=== PATIENT | female | born 1970 | race Caucasian/White ===

== ENCOUNTER 2016-12-13 21:57 | Inpatient (IN) | payer OTHER ==
[~2016-12-13] VITALS: Ht 160 cm; Wt 96.3 kg
[2016-12-13] MEDS ORDERED: SODIUM CHLOR 0.9% 1000 ML INJ 1,000 ML IV SCH (22:01)
[2016-12-13 22:04] VITALS: BP 189/84; PULSE 99; RESP 18; TEMP 98.4; O2SAT 98
[2016-12-13] MEDS ORDERED: IBUP800T23 PO (22:11)
[2016-12-13] MEDS ORDERED: LISI-515 PO (22:11)
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
[2016-12-13] MEDS ORDERED: ONDANSETRON HCL 4 MG/2 ML VIAL IVP ONE (22:15)
[2016-12-13] MEDS ORDERED: MORPHINE SULFATE 8 MG/ML INJ IV PUSH ONE (22:15)
[2016-12-13] MEDS ORDERED: MORPHINE SULFATE 4 MG/ML INJ IM ONE (22:30)
[2016-12-13] MEDS ORDERED: ONDANSETRON ODT 4 MG TAB PO ONE (22:30)
[2016-12-13 22:57] LABS: AUTOMATED NEUTROPHIL # 9.7 TH/MM3 (1.8-7.7); BASOPHIL # 0.1 TH/MM3 (0-0.2); BASOPHIL % 1.2 % (0.0-2.0); EOSINOPHIL # 0.1 TH/MM3 (0-0.4); EOSINOPHIL % 1.1 % (0.0-4.0); HEMATOCRIT 39.6 % (35.0-46.0); HEMO FLAGS DIFF FINAL; LYMPH % 12.7 % (9.0-44.0); LYMPHOCYTE # 1.6 TH/MM3 (1.0-4.8); MEAN CELL VOLUME 85.4 FL (80.0-100.0); MEAN CORPUSCULAR HGB CONC 33.9 % (32.0-36.0); MONO % 6.2 % (0.0-8.0); NEUT % 78.8 % (16.0-70.0); PLATELET COUNT 243 TH/MM3 (150-450); RED BLOOD COUNT 4.63 MIL/MM3 (4.00-5.30); RED CELL DISTRIBUTION WIDTH 13.5 % (11.6-17.2); WHITE BLOOD COUNT 12.2 TH/MM3 (4.0-11.0)
[2016-12-13 23:11] LABS: APTT (PATIENT) 22.9 SEC (24.3-30.1); INTERNATIONAL NORMALIZED RATIO 0.9 RATIO; PROTHROMBIN TIME - PATIENT 9.6 SEC (9.8-11.6)
[2016-12-13 23:23] LABS: ALKALINE PHOSPHATASE 69 U/L (45-117); TOTAL BILIRUBIN ADULT 0.2 MG/DL (0.2-1.0)
[2016-12-13 23:34] LABS: ALT (GPT) 83 U/L (10-53); ANION GAP 8 MEQ/L (5-15); AST (GOT) 78 U/L (15-37); BICARBONATE 27.7 MEQ/L (21.0-32.0); BLOOD UREA NITROGEN 15 MG/DL (7-18); CHLORIDE 104 MEQ/L (98-107); GLOMERULAR FILTRATION RATE 61 ML/MIN (>89); POTASSIUM 3.7 MEQ/L (3.5-5.1); SODIUM (NA) 140 MEQ/L (136-145)
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
[2016-12-13] MEDS ORDERED: MORPHINE SULFATE 8 MG/ML INJ ONE (23:50)
[2016-12-13 23:56] VITALS: RESP 18; O2SAT 97
[2016-12-14] VITALS: BP 167/77; PULSE 102; RESP 18; O2SAT 96
[2016-12-14] MEDS ORDERED: MORPHINE SULFATE 4 MG/ML INJ IV PUSH ONE
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
[2016-12-14] MEDS ORDERED: SODIUM CHLORIDE 0.9% FLUSH 5 ML FLUSH IVF PRN (00:45)
[2016-12-14] MEDS ORDERED: CHLORHEXIDINE GLUCONATE 2 % 1 PACK (2 CLOTHS) TOP PRN (00:45)
[2016-12-14] MEDS ORDERED: MISCELLANEOUS NURSING INFORMATION XX SCH (00:45)
[2016-12-14] MEDS ORDERED: ACETAMINOPHEN/HYDROcodone 325 MG/5 MG TAB PO PRN (00:45)
[2016-12-14] MEDS: ACETAMINOPHEN/HYDROcodone 325 MG/5 MG TAB PO PRN ×5 (01:05→21:55)
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
[2016-12-14 01:28] LABS: BACTERIA, URINE RARE /hpf; BLOOD, URINE SMALL (NEG); COMMENT (UR) CULT NOT INDICATED; CULTURE IF INDICATED CULT NOT INDICATED; GLUCOSE,URINE NEG (NEG); KETONE, URINE NEG (NEG); MUCUS URINE FEW /lpf (OCC); NITRITE,URINE NEG (NEG); URINE COLOR YELLOW (YELLW/STRAW)
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
[2016-12-14 02:50] VITALS: BP 136/78; PULSE 118; RESP 20; TEMP 98.2; O2SAT 95
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
[2016-12-14] MEDS: CHLORHEXIDINE GLUCONATE 2 % 1 PACK (2 CLOTHS) TOP SCH (04:00)
[2016-12-14] MEDS: HYDROmorphone HCL PF 2 MG/ML VIAL IVP PRN ×4 (06:10→19:54)
[2016-12-14] MEDS ORDERED: SODIUM CHLOR 0.9% 1000 ML INJ 1,000 ML IV SCH (07:06)
[2016-12-14] MEDS ORDERED: SODIUM CHLORIDE 0.9% FLUSH 5 ML FLUSH IV FLUSH PRN (07:15)
[2016-12-14] MEDS ORDERED: RESP: ALBUTEROL 2.5 MG/IPRATROPIUM 0.5 MG NEB (PRN) INH (07:15)
[2016-12-14 08:05] VITALS: BP 134/74; PULSE 105; RESP 16; TEMP 98.2; O2SAT 97
[2016-12-14] MEDS ORDERED: SODIUM CHLORIDE 0.9% FLUSH 5 ML FLUSH IV FLUSH SCH (09:00)
[2016-12-14] MEDS: DOCUSATE SODIUM 100 MG CAP PO SCH ×2 (09:12→21:54)
[2016-12-14] MEDS: FAMOTIDINE 20 MG TAB PO SCH ×2 (09:12→21:55)
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
[2016-12-14] MEDS: RESP: ALBUTEROL 2.5 MG/IPRATROPIUM 0.5 MG NEB (SCH) INH ×3 (11:29→21:10)
[2016-12-14] MEDS: ENOXAPARIN SODIUM 30 MG/0.3 ML SYRINGE SQ SCH ×2 (12:01→21:55)
[2016-12-14 12:16] VITALS: BP 145/79; PULSE 106; RESP 16; TEMP 97.6; O2SAT 100
--- NOTE | 2016-12-14 13:32 | HHI.PR ---
Objective Vitals/I&O Vital Signs Date Time Temp Pulse Resp B/P Pulse Ox O2 Delivery O2 Flow Rate FiO2 12/14/16 08:05 98.2 105 16 134/74 97 12/14/16 00:00 Room Air Labs Laboratory Tests Test 12/13/16 12/14/16 22:40 00:55 White Blood Count 12.2 Red Blood Count 4.63 Hemoglobin 13.4 Hematocrit 39.6 Mean Corpuscular Volume 85.4 Mean Corpuscular Hemoglobin 29.0 Mean Corpuscular Hemoglobin 33.9 Concent Red Cell Distribution Width 13.5 Platelet Count 243 Mean Platelet Volume 8.7 Neutrophils (%) (Auto) 78.8 Lymphocytes (%) (Auto) 12.7 Monocytes (%) (Auto) 6.2 Eosinophils (%) (Auto) 1.1 Basophils (%) (Auto) 1.2 Neutrophils # (Auto) 9.7 Lymphocytes # (Auto) 1.6 Monocytes # (Auto) 0.8 Eosinophils # (Auto) 0.1 Basophils # (Auto) 0.1 CBC Comment DIFF FINAL Differential Comment Prothrombin Time 9.6 Prothromb Time International 0.9 Ratio Activated Partial 22.9 Thromboplast Time Sodium Level 140 Potassium Level 3.7 Chloride Level 104 Carbon Dioxide Level 27.7 Anion Gap 8 Blood Urea Nitrogen 15 Creatinine 0.98 Estimat Glomerular Filtration 61 Rate Random Glucose 102 Calcium Level 8.6 Total Bilirubin 0.2 Aspartate Amino Transf 78 (AST/SGOT) Alanine Aminotransferase 83 (ALT/SGPT) Alkaline Phosphatase 69 Total Protein 7.1 Albumin 3.8 Urine Color YELLOW Urine Turbidity CLEAR Urine pH 6.0 Urine Specific [place] 1.015 Urine Protein 100 Urine Glucose (UA) NEG Urine Ketones NEG Urine Occult Blood SMALL Urine Nitrite NEG Urine Bilirubin NEG Urine Urobilinogen LESS THAN 2.0 Urine Leukocyte Esterase NEG Urine RBC 6 Urine WBC 1 Urine Bacteria RARE Urine Mucus FEW Microscopic Urinalysis Comment CULT NOT INDICATED Rosa Collins Dec 14, 2016 1:32 pm
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
[2016-12-14 16:30] VITALS: BP 120/67; PULSE 103; RESP 17; TEMP 98.1; O2SAT 96
[2016-12-14] MEDS: SODIUM CHLORIDE 0.9% FLUSH 5 ML FLUSH IVF PRN (19:54)
[2016-12-14 20:00] VITALS: BP 138/77; PULSE 100; RESP 16; TEMP 99.1; O2SAT 100
[2016-12-14] MEDS: MAGNESIUM HYDROXIDE SUSP 30 ML CUP PO SCH (21:55)
[2016-12-15] VITALS: BP 133/77; PULSE 107; RESP 16; TEMP 98; O2SAT 95
[2016-12-15] MEDS: ACETAMINOPHEN/HYDROcodone 325 MG/5 MG TAB PO PRN ×5 (01:42→19:28)
[2016-12-15] MEDS: HYDROmorphone HCL PF 2 MG/ML VIAL IVP PRN ×2 (01:43→05:35)
[2016-12-15] MEDS: CHLORHEXIDINE GLUCONATE 2 % 1 PACK (2 CLOTHS) TOP SCH (04:00)
[2016-12-15 04:26] LABS: AUTOMATED NEUTROPHIL # 5.9 TH/MM3 (1.8-7.7); BASOPHIL % 0.4 % (0.0-2.0); EOSINOPHIL % 0.5 % (0.0-4.0); HEMATOCRIT 37.3 % (35.0-46.0); HEMO FLAGS DIFF FINAL; LYMPH % 16.8 % (9.0-44.0); LYMPHOCYTE # 1.4 TH/MM3 (1.0-4.8); MEAN CELL VOLUME 86.7 FL (80.0-100.0); MEAN CORPUSCULAR HEMOGLOBIN 29.1 PG (27.0-34.0); MEAN CORPUSCULAR HGB CONC 33.5 % (32.0-36.0); MONO % 9.9 % (0.0-8.0); NEUT % 72.4 % (16.0-70.0); PLATELET COUNT 200 TH/MM3 (150-450); RED CELL DISTRIBUTION WIDTH 13.4 % (11.6-17.2); WHITE BLOOD COUNT 8.2 TH/MM3 (4.0-11.0)
[2016-12-15 05:16] LABS: BICARBONATE 25.9 MEQ/L (21.0-32.0); MAGNESIUM 2.1 MG/DL (1.5-2.5); POTASSIUM 3.9 MEQ/L (3.5-5.1)
[2016-12-15 08:00] VITALS: BP 121/67; PULSE 97; RESP 18; TEMP 97.1; O2SAT 95
--- NOTE | 2016-12-15 08:43 | PD.ORT.PN ---
Subjective Subjective Remarks Patient is very uncomfortable. Lies in bed with both hips flexed and externally rotated. Mild discomfort in the region of the right elbow. An x-ray has been obtained. No new areas of pain. Complaints of moderate spasm Objective Vitals Vital Signs Date Time Temp Pulse Resp B/P Pulse Ox O2 Delivery O2 Flow Rate FiO2 12/15/16 00:00 98.0 107 16 133/77 95 12/14/16 20:00 99.1 100 16 138/77 100 12/14/16 16:30 98.1 103 17 120/67 96 12/14/16 12:16 97.6 106 16 145/79 100 I/O 12/14/16 12/14/16 12/14/16 12/15/16 12/15/16 12/15/16 07:00 15:00 23:00 07:00 15:00 23:00 Intake Total 240 ml 742 ml 360 ml 240 ml Output Total 600 ml 250 ml 600 ml 400 ml Balance -360 ml 492 ml -240 ml -160 ml Intake Oral 240 ml 360 ml 360 ml 240 ml IV Total 382 ml Output Urine Total 600 ml 250 ml 600 ml 400 ml Result Diagram: 12/15/162 12/15/16 0402 Objective Remarks X-ray right elbow is reviewed. No evidence of fracture. X-ray of the pelvis and CT reviewed, this shows evidence of bilateral acetabular fractures without displacement. There is evidence of an anterior and issue ramus fracture on the left with mild displacement.. Right elbow full range of motion. Mild ecchymosis. No instability. Mild pain. Radial pulse 2+. Sensation normal distally. New line significant pain with any range of motion of either hip. The patient no significant spasm with range of motion. Sensation both legs normal. No swelling of either knee or ankle or foot. Assessment & Plan Assessment and Plan Left acetabular fracture, nondisplaced. Right acetabular fracture, nondisplaced. Left anterior and ischial ramus fracture. Contusion right elbow. PLAN: 50% weightbearing right leg Nonweightbearing left leg Weightbearing as tolerated both arms Nonoperative treatment at this time Soma as needed for spasm Continued Day catheter. This patient's present orthopedic condition is such that the catheter should stay in, probably for the next several days Trapeze and frame for the bed. Zofran as needed for nausea. Orthopedically stable Harlan Callahan MD Dec 15, 2016 08:42
[2016-12-15] MEDS: FAMOTIDINE 20 MG TAB PO SCH ×2 (09:35→20:24)
[2016-12-15] MEDS: ONDANSETRON HCL 4 MG/2 ML VIAL IV PUSH PRN ×2 (09:35→16:46)
[2016-12-15] MEDS: DOCUSATE SODIUM 100 MG CAP PO SCH ×2 (09:35→20:24)
[2016-12-15] MEDS: CARISOPRODOL 350 MG TAB PO PRN ×2 (09:36→19:28)
[2016-12-15] MEDS: ENOXAPARIN SODIUM 30 MG/0.3 ML SYRINGE SQ SCH ×2 (09:36→20:24)
[2016-12-15] MEDS: LACTULOSE SYRUP 20 GM/30 ML CUP PO SCH (09:37)
[2016-12-15] MEDS: RESP: ALBUTEROL 2.5 MG/IPRATROPIUM 0.5 MG NEB (SCH) INH ×4 (09:37→21:21)
[2016-12-15 10:00] VITALS: O2SAT 98
[2016-12-15 12:00] VITALS: BP 140/75; PULSE 94; RESP 18; TEMP 97.4; O2SAT 96
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
[2016-12-15 16:00] VITALS: BP 142/80; PULSE 96; RESP 18; TEMP 96.4; O2SAT 96
[2016-12-15] MEDS: LISINOPRIL 20 MG TAB PO SCH (16:52)
[2016-12-15 20:00] VITALS: BP 160/82; PULSE 101; RESP 19; TEMP 98.6; O2SAT 97
[2016-12-15] MEDS: MAGNESIUM HYDROXIDE SUSP 30 ML CUP PO SCH (20:24)
[2016-12-16 00:30] VITALS: BP 133/75; PULSE 107; RESP 20; TEMP 97.5; O2SAT 96
[2016-12-16] MEDS: RESP: ALBUTEROL 2.5 MG/IPRATROPIUM 0.5 MG NEB (SCH) INH (03:17)
[2016-12-16] MEDS: ACETAMINOPHEN/HYDROcodone 325 MG/5 MG TAB PO PRN ×5 (04:32→23:09)
[2016-12-16 08:00] VITALS: BP 139/78; PULSE 103; RESP 19; TEMP 97.6; O2SAT 100
[2016-12-16] MEDS: ONDANSETRON HCL 4 MG/2 ML VIAL IV PUSH PRN (09:17)
[2016-12-16] MEDS: ENOXAPARIN SODIUM 30 MG/0.3 ML SYRINGE SQ SCH ×2 (09:17→20:22)
[2016-12-16] MEDS: DOCUSATE SODIUM 100 MG CAP PO SCH ×2 (09:17→20:22)
[2016-12-16] MEDS: LISINOPRIL 20 MG TAB PO SCH (09:17)
[2016-12-16] MEDS: FAMOTIDINE 20 MG TAB PO SCH ×2 (09:17→20:22)
[2016-12-16] MEDS: LACTULOSE SYRUP 20 GM/30 ML CUP PO SCH (09:18)
[2016-12-16] MEDS: SODIUM CHLORIDE 0.9% FLUSH 5 ML FLUSH IVF PRN (09:22)
[2016-12-16 12:00] VITALS: BP 147/73; PULSE 102; RESP 18; TEMP 97.6; O2SAT 99
--- NOTE | 2016-12-16 12:59 | HHI.PR ---
Objective Vitals/I&O Vital Signs Date Time Temp Pulse Resp B/P Pulse Ox O2 Delivery O2 Flow Rate FiO2 12/16/16 12:00 97.6 102 18 147/73 99 12/15/16 10:00 21 12/14/16 00:00 Room Air [place] Dec 16, 2016 12:59
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
[2016-12-16 16:00] VITALS: BP 142/74; PULSE 101; RESP 18; TEMP 96.3; O2SAT 99
[2016-12-16] MEDS: MAGNESIUM HYDROXIDE SUSP 30 ML CUP PO SCH (20:22)
[2016-12-16 20:50] VITALS: BP 150/74; PULSE 101; RESP 17; TEMP 97.6; O2SAT 98
[2016-12-17 00:40] VITALS: BP 123/58; PULSE 99; RESP 18; TEMP 97.4; O2SAT 93
[2016-12-17] MEDS: ACETAMINOPHEN/HYDROcodone 325 MG/5 MG TAB PO PRN ×5 (05:05→21:16)
[2016-12-17 08:00] VITALS: BP 113/69; PULSE 98; RESP 18; TEMP 97.5; O2SAT 98
[2016-12-17] MEDS: FAMOTIDINE 20 MG TAB PO SCH ×2 (08:45→20:44)
[2016-12-17] MEDS: LISINOPRIL 20 MG TAB PO SCH (08:45)
[2016-12-17] MEDS: CARISOPRODOL 350 MG TAB PO PRN ×2 (08:50→17:18)
[2016-12-17] MEDS: DOCUSATE SODIUM 100 MG CAP PO SCH ×2 (08:52→20:45)
[2016-12-17] MEDS: LACTULOSE SYRUP 20 GM/30 ML CUP PO SCH (08:52)
[2016-12-17] MEDS: ENOXAPARIN SODIUM 30 MG/0.3 ML SYRINGE SQ SCH ×2 (08:53→20:44)
[2016-12-17] MEDS: SODIUM CHLORIDE 0.9% FLUSH 5 ML FLUSH IVF PRN (08:56)
[2016-12-17 12:00] VITALS: BP 112/62; PULSE 100; RESP 18; TEMP 97.5; O2SAT 95
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
[2016-12-17 16:30] VITALS: BP 121/83; PULSE 101; RESP 18; TEMP 98.8; O2SAT 97
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
[2016-12-17 20:10] VITALS: BP 139/66; PULSE 102; RESP 18; TEMP 98.1; O2SAT 96
[2016-12-17] MEDS: MAGNESIUM HYDROXIDE SUSP 30 ML CUP PO SCH (20:44)
[2016-12-18 00:45] VITALS: BP 124/60; PULSE 98; RESP 16; TEMP 97.7; O2SAT 95
[2016-12-18] MEDS: ACETAMINOPHEN/HYDROcodone 325 MG/5 MG TAB PO PRN ×5 (03:34→20:23)
[2016-12-18] MEDS: CARISOPRODOL 350 MG TAB PO PRN ×3 (03:34→20:23)
[2016-12-18] MEDS: LISINOPRIL 20 MG TAB PO SCH (07:58)
[2016-12-18] MEDS: ENOXAPARIN SODIUM 30 MG/0.3 ML SYRINGE SQ SCH ×2 (07:58→20:24)
[2016-12-18 08:00] VITALS: BP 129/74; PULSE 94; RESP 18; TEMP 96.7; O2SAT 96
[2016-12-18] MEDS: FAMOTIDINE 20 MG TAB PO SCH ×2 (08:00→20:23)
[2016-12-18] MEDS: LACTULOSE SYRUP 20 GM/30 ML CUP PO SCH (08:01)
[2016-12-18] MEDS: DOCUSATE SODIUM 100 MG CAP PO SCH ×2 (08:02→20:25)
[2016-12-18 12:00] VITALS: BP 130/65; PULSE 100; RESP 18; TEMP 96.3; O2SAT 99
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
[2016-12-18 16:00] VITALS: BP 111/65; PULSE 100; RESP 18; TEMP 96.3; O2SAT 97
[2016-12-18] MEDS: MAGNESIUM HYDROXIDE SUSP 30 ML CUP PO SCH (20:25)
[2016-12-18 20:50] VITALS: BP 128/60; PULSE 110; RESP 17; TEMP 98.6; O2SAT 95
[2016-12-19 00:33] VITALS: BP 163/77; PULSE 96; RESP 18; TEMP 97.1; O2SAT 95
[2016-12-19] MEDS: ACETAMINOPHEN/HYDROcodone 325 MG/5 MG TAB PO PRN ×5 (02:44→22:06)
[2016-12-19] MEDS: CARISOPRODOL 350 MG TAB PO PRN ×3 (05:28→20:43)
[2016-12-19 08:00] VITALS: BP 131/67; PULSE 100; RESP 18; TEMP 97.9; O2SAT 97
[2016-12-19] MEDS: LISINOPRIL 20 MG TAB PO SCH (08:13)
[2016-12-19] MEDS: LACTULOSE SYRUP 20 GM/30 ML CUP PO SCH (08:13)
[2016-12-19] MEDS: SODIUM CHLORIDE 0.9% FLUSH 5 ML FLUSH IVF PRN (08:13)
[2016-12-19] MEDS: ENOXAPARIN SODIUM 30 MG/0.3 ML SYRINGE SQ SCH ×2 (08:13→20:13)
[2016-12-19] MEDS: DOCUSATE SODIUM 100 MG CAP PO SCH ×2 (08:13→20:12)
[2016-12-19] MEDS: FAMOTIDINE 20 MG TAB PO SCH ×2 (08:13→20:12)
[2016-12-19 12:00] VITALS: BP 135/70; PULSE 100; RESP 18; TEMP 98.5; O2SAT 95
[2016-12-19 15:55] VITALS: BP 142/80; PULSE 100; RESP 18; TEMP 98.6; O2SAT 96
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
[2016-12-19 19:45] VITALS: BP 129/64; PULSE 104; RESP 20; TEMP 97.7; O2SAT 96
[2016-12-19] MEDS: MAGNESIUM HYDROXIDE SUSP 30 ML CUP PO SCH (20:12)
[2016-12-20] VITALS (8 sets, daily range): BP systolic 103–131; BP diastolic 53–82; PULSE 96–105; RESP 16–18; TEMP 97.3–98.5; O2SAT 94–98
[2016-12-20] MEDS: ACETAMINOPHEN/HYDROcodone 325 MG/5 MG TAB PO PRN ×5 (02:33→22:30)
[2016-12-20] MEDS: LISINOPRIL 20 MG TAB PO SCH (08:52)
[2016-12-20] MEDS: FAMOTIDINE 20 MG TAB PO SCH ×2 (08:52→20:33)
[2016-12-20] MEDS: DOCUSATE SODIUM 100 MG CAP PO SCH ×2 (08:52→20:33)
[2016-12-20] MEDS: ENOXAPARIN SODIUM 30 MG/0.3 ML SYRINGE SQ SCH ×2 (08:52→20:33)
[2016-12-20] MEDS: CARISOPRODOL 350 MG TAB PO PRN ×2 (08:52→16:22)
[2016-12-20] MEDS: LACTULOSE SYRUP 20 GM/30 ML CUP PO SCH (08:53)
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
[2016-12-20] MEDS: MAGNESIUM HYDROXIDE SUSP 30 ML CUP PO SCH (20:37)
[2016-12-21] MEDS: CARISOPRODOL 350 MG TAB PO PRN ×3 (05:05→21:57)
[2016-12-21 08:00] VITALS: BP 105/57; PULSE 99; RESP 18; TEMP 95.8; O2SAT 98
[2016-12-21] MEDS: DOCUSATE SODIUM 100 MG CAP PO SCH ×2 (09:00→20:37)
[2016-12-21] MEDS: LACTULOSE SYRUP 20 GM/30 ML CUP PO SCH (09:00)
[2016-12-21] MEDS: LISINOPRIL 20 MG TAB PO SCH (09:00)
[2016-12-21] MEDS: ACETAMINOPHEN/HYDROcodone 325 MG/5 MG TAB PO PRN (10:18)
[2016-12-21] MEDS: FAMOTIDINE 20 MG TAB PO SCH ×2 (10:19→20:36)
[2016-12-21] MEDS: ENOXAPARIN SODIUM 30 MG/0.3 ML SYRINGE SQ SCH ×2 (10:21→20:35)
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
[2016-12-21 12:00] VITALS: BP 128/69; PULSE 100; RESP 18; TEMP 97.8; O2SAT 95
[2016-12-21] MEDS ORDERED: MISC-163 (13:52)
[2016-12-21] MEDS ORDERED: WHEEMIS3 (13:53)
[2016-12-21] MEDS ORDERED: MISC-289 (13:53)
[2016-12-21] MEDS ORDERED: MILKSUS PO (13:54)
[2016-12-21] MEDS ORDERED: DOCU1CAP39 PO (13:54)
[2016-12-21] MEDS: ACETAMINOPHEN/HYDROcodone 325 MG/7.5 MG TAB PO PRN ×2 (14:56→18:50)
[2016-12-21 16:00] VITALS: BP 135/71; PULSE 95; RESP 18; TEMP 98.2; O2SAT 97
[2016-12-21 20:30] VITALS: BP 131/76; PULSE 96; RESP 20; TEMP 96.9; O2SAT 97
[2016-12-21] MEDS: MAGNESIUM HYDROXIDE SUSP 30 ML CUP PO SCH (20:37)
[2016-12-21] MEDS: diphenhydrAMINE HCL 50 MG/ML VIAL IV PRN (21:57)
[2016-12-22 00:06] VITALS: BP 100/43; PULSE 93; RESP 18; TEMP 97.5; O2SAT 95
[2016-12-22] MEDS: ACETAMINOPHEN/HYDROcodone 325 MG/7.5 MG TAB PO PRN ×4 (03:06→17:18)
[2016-12-22 05:40] LABS: BASOPHIL # 0.1 TH/MM3 (0-0.2); BASOPHIL % 0.9 % (0.0-2.0); EOSINOPHIL # 0.3 TH/MM3 (0-0.4); EOSINOPHIL % 4.2 % (0.0-4.0); HEMO FLAGS DIFF FINAL; LYMPHOCYTE # 1.4 TH/MM3 (1.0-4.8); MEAN CELL VOLUME 85.5 FL (80.0-100.0); MEAN CORPUSCULAR HEMOGLOBIN 28.5 PG (27.0-34.0); MEAN CORPUSCULAR HGB CONC 33.3 % (32.0-36.0); MONO % 10.3 % (0.0-8.0); NEUT % 65.6 % (16.0-70.0); PLATELET COUNT 275 TH/MM3 (150-450); RED CELL DISTRIBUTION WIDTH 13.6 % (11.6-17.2); WHITE BLOOD COUNT 7.6 TH/MM3 (4.0-11.0)
[2016-12-22 05:49] LABS: ALT (GPT) 38 U/L (10-53); ANION GAP 8 MEQ/L (5-15); AST (GOT) 19 U/L (15-37); BICARBONATE 27.7 MEQ/L (21.0-32.0); CHLORIDE 104 MEQ/L (98-107); GLOMERULAR FILTRATION RATE 92 ML/MIN (>89); MAGNESIUM 2.1 MG/DL (1.5-2.5); POTASSIUM 4.5 MEQ/L (3.5-5.1); SODIUM (NA) 140 MEQ/L (136-145)
[2016-12-22 05:52] LABS: ALKALINE PHOSPHATASE 52 U/L (45-117); TOTAL BILIRUBIN ADULT 0.3 MG/DL (0.2-1.0)
[2016-12-22 05:54] LABS: BLOOD UREA NITROGEN 16 MG/DL (7-18)
[2016-12-22] MEDS: diphenhydrAMINE HCL 50 MG/ML VIAL IV PRN ×2 (07:26→20:54)
[2016-12-22 08:00] VITALS: BP 135/79; PULSE 89; RESP 18; TEMP 96.7; O2SAT 96
[2016-12-22] MEDS: LACTULOSE SYRUP 20 GM/30 ML CUP PO SCH (09:00)
[2016-12-22] MEDS: DOCUSATE SODIUM 100 MG CAP PO SCH ×2 (09:00→20:43)
[2016-12-22] MEDS: FAMOTIDINE 20 MG TAB PO SCH ×2 (09:43→20:43)
[2016-12-22] MEDS: ENOXAPARIN SODIUM 30 MG/0.3 ML SYRINGE SQ SCH ×2 (09:43→20:43)
[2016-12-22] MEDS: LISINOPRIL 20 MG TAB PO SCH (09:43)
[2016-12-22] MEDS: CARISOPRODOL 350 MG TAB PO PRN ×2 (09:45→20:43)
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
[2016-12-22 12:00] VITALS: BP 131/69; PULSE 104; RESP 18; TEMP 97.8; O2SAT 97
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
[2016-12-22 16:00] VITALS: BP 112/60; PULSE 99; RESP 18; TEMP 97.5; O2SAT 96
[2016-12-22 19:41] VITALS: BP 117/60; PULSE 99; RESP 18; TEMP 97.2; O2SAT 95
[2016-12-22] MEDS: MAGNESIUM HYDROXIDE SUSP 30 ML CUP PO SCH (20:43)
[2016-12-23 00:55] VITALS: BP 99/55; PULSE 91; RESP 17; TEMP 98.2; O2SAT 97
[2016-12-23] MEDS: ACETAMINOPHEN/HYDROcodone 325 MG/7.5 MG TAB PO PRN ×5 (02:07→22:06)
[2016-12-23] MEDS: CARISOPRODOL 350 MG TAB PO PRN (06:22)
[2016-12-23] MEDS: LACTULOSE SYRUP 20 GM/30 ML CUP PO SCH (07:40)
[2016-12-23] MEDS: ENOXAPARIN SODIUM 30 MG/0.3 ML SYRINGE SQ SCH ×2 (07:40→22:05)
[2016-12-23] MEDS: LISINOPRIL 20 MG TAB PO SCH (07:41)
[2016-12-23] MEDS: DOCUSATE SODIUM 100 MG CAP PO SCH ×2 (07:41→22:06)
[2016-12-23] MEDS: FAMOTIDINE 20 MG TAB PO SCH ×2 (07:41→22:05)
[2016-12-23 07:54] VITALS: BP 125/58; PULSE 87; RESP 16; TEMP 96.6; O2SAT 96
[2016-12-23 11:43] VITALS: BP 102/68; PULSE 109; RESP 16; TEMP 97.4; O2SAT 95
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
[2016-12-23 15:50] VITALS: BP 112/54; PULSE 94; RESP 16; TEMP 97.5; O2SAT 95
[2016-12-23 20:25] VITALS: BP 115/58; PULSE 95; RESP 17; TEMP 97.8; O2SAT 96
[2016-12-23] MEDS: MAGNESIUM HYDROXIDE SUSP 30 ML CUP PO SCH (22:06)
[2016-12-24] VITALS: BP 107/58; PULSE 87; RESP 17; TEMP 97.2; O2SAT 95
[2016-12-24] MEDS: ACETAMINOPHEN/HYDROcodone 325 MG/7.5 MG TAB PO PRN ×3 (03:54→13:52)
[2016-12-24 08:00] VITALS: BP 118/58; PULSE 97; RESP 20; TEMP 97.5; O2SAT 93
[2016-12-24] MEDS ORDERED: ROBA500T PO (08:17)
[2016-12-24] MEDS: FAMOTIDINE 20 MG TAB PO SCH (08:53)
[2016-12-24] MEDS: DOCUSATE SODIUM 100 MG CAP PO SCH (08:53)
[2016-12-24] MEDS: LACTULOSE SYRUP 20 GM/30 ML CUP PO SCH (08:53)
[2016-12-24] MEDS: ENOXAPARIN SODIUM 30 MG/0.3 ML SYRINGE SQ SCH (08:55)
[2016-12-24] MEDS: LISINOPRIL 20 MG TAB PO SCH (09:00)
[2016-12-24 12:00] VITALS: BP 123/77; PULSE 83; RESP 20; TEMP 98.4; O2SAT 93
[2016-12-24] MEDS ORDERED: ENOX30P SQ (12:14)
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
[2016-12-24] MEDS ORDERED: HYDR-3288 PO (14:13)
== END 2016-12-24 14:54 | disposition home health service (06) | DRG 536 ==
LOC: NEPE 21:57 → NEDA 12-14 00:39 → N06B 12-14 02:17
PROVIDERS: ADMIT Surgery Trauma Surgery; ATTEND Surgery Trauma Surgery
DX: S32.402A Unspecified fracture of left acetabulum, initial encounter for closed fracture (principal); S32.592A Other specified fracture of left pubis, initial encounter for closed fracture; S90.415A Abrasion, left lesser toe(s), initial encounter; S50.01XA Contusion of right elbow, initial encounter; S80.01XA Contusion of right knee, initial encounter; S32.401A Unspecified fracture of right acetabulum, initial encounter for closed fracture; V23.5XXA Motorcycle passenger injured in collision with car, pick-up truck or van in traffic accident, initial encounter; Y92.410 Unspecified street and highway as the place of occurrence of the external cause; I10 Essential (primary) hypertension; Z88.0 Allergy status to penicillin; Z88.2 Allergy status to sulfonamides
CPT/HCPCS: 71010; 73070; 73502; 73560; 73600; 74176; 76937; 80048; 80053; 81001; 83735; 85025; 85610; 85730; 94150; 94640; 94664; 96372; J1170; J1200; J1650; J2270; J2405; J7030